=== PATIENT | male | born 1985 | race Caucasian/White ===

== ENCOUNTER 2016-08-15 09:46 | Emergency (ER) | payer MEDICAID ==
[~2016-08-15] VITALS: Ht 180.3 cm; Wt 158.8 kg
[2016-08-15] MEDS ORDERED: SODIUM CHLORIDE 0.9% 1,000 ML IV ONE (10:02)
[2016-08-15 10:06] VITALS: BP 150/76
[2016-08-15] MEDS ORDERED: ASPirin 81 mg TAB PO ONE (10:15)
[2016-08-15 10:53] LABS: Basophils # (auto) 0 uL; Basophils % (auto) 0.6 % (0.0-2.0); Eosinophils # (auto) 0.4 uL; Eosinophils % (auto) 5.3 % (0.0-7.0); Hemoglobin 14.4 g/dL (13.5-17.5); Lymphocytes # (auto) 2.1 uL; Mean Corpuscular Hemoglobin 27.6 pg (28.0-32.0); Mean Corpuscular Hgb Conc. 31.4 g/dL (32.0-36.0); Mean Corpuscular Volume 87.6 fL (80.0-100.0); Mean Platelet Volume 9.3 fL (7.4-10.4); Monocytes # (auto) 0.6 uL; Monocytes % (auto) 9.5 % (0.0-12.0); Neutrophils # (auto) 3.6 uL; Neutrophils % (auto) 53.6 % (37.0-80.0); Platelet Count (auto) 220 10^3/uL (140-450); Red Cell Distribution Width 15.2 % (11.6-16.0); White Blood Cell 6.6 10^3/uL (4.4-10.8)
[2016-08-15 11:20] LABS: INR 0.97 (0.9-1.15); Partial Thromboplastin Time 27.6 sec (22.64-33.71)
[2016-08-15 11:40] LABS: Albumin 3.8 g/dL (3.4-5.0); Bilirubin, Total 0.3 mg/dL (0.2-1.0); Calcium 8.9 mg/dL (8.5-10.1); Magnesium 2.5 mg/dL (1.6-2.6); Total Protein 7.9 g/dL (6.4-8.2)
[2016-08-15] MEDS ORDERED: KETOROLAC TROMETH 30 MG/ML 1ML VIAL IV ONE (11:45)
== END 2016-08-15 12:36 | disposition home or self-care (01) ==
LOC: ER 09:46
DX: S20.211A Contusion of right front wall of thorax, initial encounter (principal); W19.XXXA Unspecified fall, initial encounter; Y93.89 Activity, other specified; Y99.8 Other external cause status; Y92.89 Other specified places as the place of occurrence of the external cause
CPT/HCPCS: 36415; 71010; 80053; 83735; 84484; 85025; 85610; 85730; 93005; 94761; 96361; 96374; 99285; J1885; J7030

== ENCOUNTER 2017-07-19 08:32 | Emergency (ER) | payer MEDICAID ==
[~2017-07-19] VITALS: Ht 180.3 cm; Wt 159.0 kg
[2017-07-19 08:39] VITALS: BP 149/80
== END 2017-07-19 09:38 | disposition home or self-care (01) ==
LOC: ER 08:32
DX: J20.9 Acute bronchitis, unspecified (principal); Z95.1 Presence of aortocoronary bypass graft
CPT/HCPCS: 71045; 93005

== ENCOUNTER 2017-10-18 13:10 | Emergency (ER) | payer MEDICAID ==
[~2017-10-18] VITALS: Ht 180.3 cm; Wt 148.8 kg
[2017-10-18 13:28] VITALS: BP 141/92
[2017-10-18] MEDS ORDERED: EPINEPHrine HCL 1 MG/1 ML AMP SC ONE (15:30)
[2017-10-18] MEDS ORDERED: diphenhdrAMINE HCL 50 MG/1 ML VL IM ONE (15:30)
== END 2017-10-18 16:07 | disposition home or self-care (01) ==
LOC: ER 13:10
DX: T78.40XA Allergy, unspecified, initial encounter (principal); Z95.1 Presence of aortocoronary bypass graft; E66.9 Obesity, unspecified; Z68.42 Body mass index [BMI] 45.0-49.9, adult
CPT/HCPCS: 96372; 99284; J0171; J1200